=== PATIENT | female | born 1940 | race Caucasian/White ===

== ENCOUNTER 2019-03-03 12:21 | Outpatient (CLI) | payer MEDICARE, OTHER ==
--- NOTE | 2019-03-03 13:23 | RAD ---
2 VIEWS CHEST: Date: 03/03/19 COMPARISON: 12/17/15. HISTORY: Dyspnea. FINDINGS: 2 views of the chest show a normal sized cardiomediastinal silhouette. There is a left subclavian pac emaker with its leads in the right atrium and ventricle. There is no evidence of consolidation, mass, or pleural effusion. IMPRESSION: No evidence of acute cardiopulmonary disease. POS: [facility]
== END 2019-03-03 12:22 | disposition home or self-care (01) ==
LOC: RAD 12:21
PROVIDERS: ATTEND Internal Medicine Critical Care Medicine
DX: R06.00 Dyspnea, unspecified (principal)
CPT/HCPCS: 71046

== ENCOUNTER 2019-09-19 10:00 | Outpatient (CLI) | payer MEDICARE, OTHER ==
--- NOTE | 2019-09-19 10:44 | BD ---
EXAM: DEXA bone density examination HISTORY: 79-year-old postmenopausal female for screening COMPARISON: None FINDINGS: L1--bone mineral density 0.910 g/sq cm; T score -0.7 L2--bone mineral density 1.079 g/sq cm; T score 0.5 L3--bone mineral density 1.189 g/sq cm; T score 1.0 L4--bone mineral density 1.228 g/sq cm; T score 1.5 Total L1-L4--bone mineral density 1.104 g/sq cm; T score 0.5 Right femoral neck--bone mineral density0.527; T score -2.9 Total proximal left femur--bone mineral density 0.645; T score -2.4 IMPRESSION: Osteoporosis.
== END 2019-09-19 10:01 | disposition home or self-care (01) ==
LOC: BICMAMMO 10:00
PROVIDERS: ATTEND Internal Medicine
DX: M81.0 Age-related osteoporosis without current pathological fracture (principal)
CPT/HCPCS: 77080

== ENCOUNTER 2023-05-26 09:30 | Outpatient (CLI) | payer MEDICARE, OTHER | END 2023-05-26 09:31 | disposition home or self-care (01) | LOC: PET 09:30 | PROVIDERS: ATTEND Internal Medicine Critical Care Medicine | DX: R91.1 Solitary pulmonary nodule (principal) | CPT/HCPCS: 78815; A9552 ==

== ENCOUNTER 2024-05-26 08:01 | Outpatient (CLI) | payer MEDICARE, OTHER ==
[2024-05-26] MEDS ORDERED: Iopamidol 370 76% 100 ML VIAL ONE (14:12)
== END 2024-05-26 08:02 | disposition home or self-care (01) ==
LOC: CT 08:01
PROVIDERS: ATTEND Internal Medicine Critical Care Medicine
DX: R91.8 Other nonspecific abnormal finding of lung field (principal); I25.10 Atherosclerotic heart disease of native coronary artery without angina pectoris; I70.0 Atherosclerosis of aorta
CPT/HCPCS: 36415; 71260; 82565 ×2; Q9967

== ENCOUNTER 2024-09-07 09:22 | Outpatient (CLI) | payer MEDICARE, OTHER | END 2024-09-07 09:23 | disposition home or self-care (01) | LOC: BICMAMMO 09:22 | PROVIDERS: ATTEND Internal Medicine | DX: M81.0 Age-related osteoporosis without current pathological fracture (principal) | CPT/HCPCS: 77080 ==